=== PATIENT | female | born 1980 | race Caucasian/White ===

== ENCOUNTER 2018-08-26 14:57 | Outpatient (REF) | payer BC, SELFPAY ==
[2018-08-30 16:07] LABS: Chlamydia Result Negative; GC Result Negative; Specimen Description URINE
== END 2018-08-26 15:17 ==
LOC: LBN 14:57
PROVIDERS: PCP Family Medicine; Visit Provider Nurse Practitioner Family
DX: Z11.3 Encounter for screening for infections with a predominantly sexual mode of transmission (principal)
CPT/HCPCS: 87491; 87591

== ENCOUNTER 2018-10-04 00:51 | Outpatient (CLI) | payer BC, SELFPAY ==
--- NOTE | 2018-10-04 13:23 | DI.MAMMO_ITS ---
SYMPTOM/DIAGNOSIS: BILATERAL BREAST IMPLANTS Z12.31 BILATERAL SCREENING MAMMOGRAM: Mammograms were interpreted according to the usual protocol including computer analysis with CAD system, tomosynthesis and C view imaging. This is a baseline examination. There are bilateral subpectoral breast implants which appear intact. Implant displaced views were performed in addition to the routine views. Breast density category B. No suspicious masses or suspicious microcalcifications are seen. IMPRESSION: Category 1-B, negative mammogram. Yearly screening mammography is recommended [facility] ASSESSMENT OF FINDINGS: Negative. Category 1. Patient will receive a letter notifying them of these results. BI-RADS category B. There are scattered areas of fibroglandular density.
== END 2018-10-04 01:11 ==
PROVIDERS: PCP Family Medicine; Visit Provider Nurse Practitioner Family
DX: Z12.31 Encounter for screening mammogram for malignant neoplasm of breast (principal); Z98.82 Breast implant status
CPT/HCPCS: 77063; 77067

== ENCOUNTER 2018-11-25 13:22 | Outpatient (CLI) | payer BC, SELFPAY ==
--- NOTE | 2018-11-25 12:15 | DI.RAD_ITS ---
SYMPTOM/DIAGNOSIS: ABD PAIN, SUPRAPUBIC,R10.30 ABDOMEN: The bowel gas pattern is unremarkable. There is a small amount of stool seen on the right side of the colon. No significant stool is seen on the left or in the rectum. Surgical clips are noted in the left mid abdomen. No urinary tract calculi are visible. IMPRESSION: Negative abdomen.
== END 2018-11-25 13:42 ==
PROVIDERS: PCP Family Medicine; Visit Provider Family Medicine
DX: R10.84 Generalized abdominal pain (principal)
CPT/HCPCS: 74018

== ENCOUNTER 2019-02-04 08:02 | Outpatient (REF) | payer BC, SELFPAY ==
[2019-02-05 13:44] LABS: Campylobacter PCR SEE COMMENTS; Salmonella PCR SEE COMMENTS; Shiga Toxin PCR SEE COMMENTS; Shigella/Enteroinvasive Ecoli SEE COMMENTS
== END 2019-02-04 08:22 ==
LOC: NCHCN 08:02
PROVIDERS: PCP Family Medicine; Visit Provider Family Medicine
DX: R10.30 Lower abdominal pain, unspecified (principal); R19.7 Diarrhea, unspecified
CPT/HCPCS: 87329; 87505; 83630; 87324

== ENCOUNTER 2019-02-09 08:01 | Outpatient (REF) | payer BC, SELFPAY ==
[2019-02-10 12:20] LABS: Campylobacter PCR SEE COMMENTS; Salmonella PCR SEE COMMENTS; Shiga Toxin PCR SEE COMMENTS; Shigella/Enteroinvasive Ecoli SEE COMMENTS
== END 2019-02-09 08:21 ==
LOC: NCHCN 08:01
PROVIDERS: PCP Family Medicine; Visit Provider Family Medicine
DX: R10.30 Lower abdominal pain, unspecified (principal); R19.7 Diarrhea, unspecified
CPT/HCPCS: 87329; 87505; 83630; 87324

== ENCOUNTER 2020-06-26 20:15 | Outpatient (REF) | payer BC, SELFPAY ==
[2020-06-29 18:09] LABS: Patient Race White; SARS-CoV-2 RNA Undetected (Undetected); SARS-CoV-2 Specimen Source Nasopharynx
== END 2020-06-26 20:35 ==
LOC: NCHCN 20:15
PROVIDERS: PCP Family Medicine; Visit Provider Nurse Practitioner Family
DX: Z20.828 Contact with and (suspected) exposure to other viral communicable diseases (principal)
CPT/HCPCS: U0003

== ENCOUNTER 2024-10-03 02:51 | Outpatient (CLI) | payer OTHER, SELFPAY ==
[2024-10-03 13:59] LABS: TSH (W/Ref FT4) 0.94 uIU/mL (0.36-3.74)
[2024-10-03 22:58] LABS: Estradiol 243 pg/mL (See Note)
[2024-10-03 23:24] LABS: FSH 16.5 mIU/mL (See Note)
== END 2024-10-03 02:52 | disposition home or self-care (01) ==
LOC: LBO 02:54
PROVIDERS: PCP Family Medicine; Visit Provider Obstetrics & Gynecology
DX: N95.1 Menopausal and female climacteric states (principal)
CPT/HCPCS: 36415; 82670; 83001; 84443

== ENCOUNTER 2024-10-31 02:13 | Outpatient (CLI) | payer OTHER, SELFPAY ==
--- NOTE | 2024-10-31 11:25 | DI.MAMMO_ITS ---
Exam(s) MG MAMMO SCREENING 60 MIN DUR EXAM: MG MAMMO SCREENING 60 MIN DUR CLINICAL HISTORY: breast cancer screening,IMPLANTS, Z12.39 TECHNIQUE: Bilateral full field digital CC and MLO mammographic images were obtained with 3D tomosyn thesis and utilizing computer aided detection (CAD). COMPARISON: Available for comparison. FINDINGS: Masses/Architectural Distortion: There is a new 7 mm nodule in the upper outer quadrant of the right breast 8 cm from the nipple. There are no areas of architectural distortion. The patient has bilate ral breast implants. Microcalcifications: No suspicious pleomorphic-type are seen. Skin Thickening/Nipple Retraction: None. IMPRESSION: 1. New 7 mm nodule in the upper outer quadrant of the right breast. 2. Spot compression views are requested for further evaluation. Limited right breast ultrasound may be indicated at that time. BI-RADS Category 0 - Incomplete: Need additional imaging evaluation Breast Density - Category B - Scattered areas of fibroglandular density Breast density category C or D implies that the patient has dense breast tissue. Dense breast tissue is very common and is not abnormal but dense breast tissue can make it harder to find cancer on a ma mmogram. Also, dense breast tissue may increase their breast cancer risk. This information about the result of the mammogram report was provided to the patient to raise their awareness. Use this report when you speak with the patient about their risks for breast cancer, which includes their family hist ory. At that time, you may recommend for more screening tests (Ultrasound or MRI) as they might be us eful based on their risk. A negative radiographic report should not delay biopsy if a dominant or clinically suspicious mass is present. Up to ten percent of cancers are not identified on mammography. A negative report may reinforce clinical impression. Adenosis and dense breasts may obscure an underlying neoplasm. False positive reports average 6 to 10%. Patient will receive a letter notifying them of these results.
== END 2024-10-31 02:33 ==
LOC: DI 02:14
PROVIDERS: PCP Family Medicine; Visit Provider Obstetrics & Gynecology
DX: Z12.31 Encounter for screening mammogram for malignant neoplasm of breast (principal); R92.323 Mammographic fibroglandular density, bilateral breasts
CPT/HCPCS: 77063; 77067

== ENCOUNTER 2024-11-07 02:04 | Outpatient (CLI) | payer BC, SELFPAY ==
--- NOTE | 2024-11-07 | DI.US_ITS ---
Exam(s) MG MAMMO SCREEN CALL BACK UNI US BREAST RT LIMITED EXAM: MG MAMMO SCREEN CALL BACK UNI CLINICAL HISTORY: New 7 mm nodule in UOQ, Rt breast, 8 cm from nipple, R92.8. TECHNIQUE: Craniocaudal and mediolateral oblique spot compression digital Mammography views of the r ightbreast with Tomosynthesis and right breast ultrasound. COMPARISON: MG MG mammo screening 60 min dur from 10/04/2018 MG MG MAMMOGRAPHY BILATERAL SCREENING from 09/18/2021 MG MG MAMMO SCREENING 60 MIN DUR from 10/31/2024 US US BREAST RT LIMITED from 11/07/2024 FINDINGS: Mammography/Tomosynthesis: Masses: Persistent circumscribed nodule adjacent to a vessel in the upper outer quadrant which could represent intramammary lymph node. Architectural Distortion: None seen. Microcalcifictions: No suspicious pleomorphic-type are seen. Skin Thickening/Nipple Retraction: None. Right breast US: Echotexture: Normal appearance of the glandular tissue. Shadowing: No suspicious foci. Solid lesions: Circumscribed hypoechoic elongated lesion which could represent intramammary lymph nod e versus fibroadenoma. 9 x 4 x 6 millimeters. Avascular. Ductal dilation: None. IMPRESSION: 1. No evidence of malignancy is noted. 2. Six-month follow-up right mammogram and ultrasound is requested. 3. The findings were discussed with the patient on the date of the examination. BI-RADS Category 3 - 6 month - Probably Benign Finding: Recommend follow-up mammography in 6 months Breast Density - Category B - Scattered areas of fibroglandular density A negative radiographic report should not delay biopsy if a dominant or clinically suspicious mass is present. Up to ten percent of cancers are not identified on mammography. A negative report may reinforce clinical impression. Adenosis and dense breasts may obscure an underlying neoplasm. False positive reports average 6 to 10%. Patient will receive a letter notifying them of these results.
== END 2024-11-07 02:24 ==
LOC: DI 02:04
PROVIDERS: PCP Family Medicine; Visit Provider Obstetrics & Gynecology
DX: D24.1 Benign neoplasm of right breast (principal); R92.8 Other abnormal and inconclusive findings on diagnostic imaging of breast; Z12.31 Encounter for screening mammogram for malignant neoplasm of breast; R92.323 Mammographic fibroglandular density, bilateral breasts
CPT/HCPCS: 76642; 77063; 77067